=== PATIENT | female | born 1965 | race Caucasian/White ===

== ENCOUNTER 2017-01-25 16:59 | Emergency (ER) | payer OTHER ==
[2017-01-25 17:03] VITALS: PULSE 105; TEMP 98; BMI 25.0
--- NOTE | 2017-01-25 19:55 | PDOC ---
History of Present Illness - General History Source: Patient Exam Limitations: No Limitations - History of Present Illness Initial Comments: 01/25/17 20:27 The patient is a 51 year old female with no significant past medical history who presents to the ED with complaints of left buttock pain for several weeks. The patient reports she woke up with a sudden onset of left buttock pain labor day weekend. She states her left buttock pain radiates down her left leg and progressively worsens throughout the day. She states as the day progresses, she develops left lower extremity numbness and tingling ,and left toe numbness. Patient also reports she develops right sided leg numbness and burning like sensation throughout the day secondary to having to depend on her right leg for walking. Patient states her legs feel like jelly and she shakes when she walks. Patient reports she applies heating pads and electrode pads to her left buttocl with slight relief of present symptoms. Patient states she was working on her garage earlier today, hit her head and slit it open. She states she went to [facility], received mario to her head and was recommended to come into the ED for a CT of her left hip. Denies fecal incontinence. Denies fevers or chills. Denies chest pain or shortness of breath. Denies dysuria or change in urinary output. Denies abdominal pain, nausea, vomiting, or diarrhea. Denies any other symptoms. Denies allergies. Surgical hx: x2, ablation of uterus secondary to menorrhagia, hematometra removal, tummy tuck <Adam Constantino - Last Filed: 01/26/17 01:56> <Lidia Lynn - Last Filed: 01/26/17 16:30> - General Chief Complaint: Pain Stated Complaint: Urgent care referred for Leg pain Time Seen by Provider: 01/25/17 18:05 Past History <Adam Constantino - Last Filed: 01/26/17 01:56> - Past Medical History Anemia: Yes Asthma: No Cancer: No Cardiac Disorders: Yes (bradycardia) CVA: No COPD: No CHF: No Dementia: No Diabetes: No GI Disorders: Yes (ACID REFLUX) Disorders: No HTN: No Hypercholesterolemia: No Liver Disease: No Seizures: No Thyroid Disease: No - Surgical History Abdominal Surgery: Yes (TUMMY TUCK) Appendectomy: No Cardiac Surgery: No Cholecystectomy: No Lung Surgery: No Neurologic Surgery: No Orthopedic Surgery: Yes - Immunization History Immunization Up to Date: No - Suicide/Smoking/Psychosocial Hx Smoking Status: No Smoking History: Never smoked Number of Cigarettes Smoked Daily: 0 Information on smoking cessation initiated: No Hx Alcohol Use: No Drug/Substance Use Hx: No Substance Use Type: None Hx Substance Use Treatment: No <Lidia Lynnh - Last Filed: 01/26/17 16:30> - Past Medical History Allergies/Adverse Reactions: Allergies Allergy/AdvReac Type Severity Reaction Status Date / Time No Known Allergies Allergy Verified 01/25/17 17:03 Home Medications: Ambulatory Orders Topiramate [Topamax] 100 mg PO DAILY 10/14/12 Amitriptyline HCl [Elavil -] 25 mg PO DAILY 01/25/17 Review of Systems - Review of Systems Able to Perform ROS?: Yes Comments:: 01/25/17 20:27 CONSTITUTIONAL: No reported: Fever, Chills, Diaphoresis, Generalized Weakness, Malaise, Loss of Appetite HEENT: No reported: Rhinorrhea, Nasal Congestion, Throat Pain, Throat Swelling, Difficulty Swallowing, Mouth Swelling, Ear Pain, Eye Pain, Visual Changes CARDIOVASCULAR: No reported: Chest Pain, Syncope, Palpitations, Irregular Heart Rate, Lightheadedness, Peripheral Edema RESPIRATORY: No reported: Cough, Shortness of Breath, SOB with Exertion, Orthopnea, Wheezing , Stridor, Hemoptysis GASTROINTESTINAL: No reported: Abdominal pain, Abdominal Distension, Nausea, Vomiting, Diarrhea, Constipation, Melena, Hematochezia GENITOURINARY: No reported: Dysuria, Frequency, Urgency, Hesitancy, Flank Pain, Genital Pain MUSCULOSKELETAL: + left buttock pain, left leg pain with numbness and tingling, right leg pain with numbness. No reported: Joint swelling, Back pain, Neck Pain SKIN: No reported: Rash, Itching, Pallor HEMEATOLOGIC/IMMUNOLOGIC: No reported: Easy Bleeding, Easy Bruising, Lymphadenopathy, Frequent infections ENDOCRINE: No reported: Unexplained Weight Gain, Unexplained Weight Loss, Heat Intolerance , Cold Intolerance NEUROLOGIC: No reported: Headache, Focal Weakness, Paresthesias, Vertigo, Lightheadedness, Unsteady Gait, Seizure, Mental Status Changes, Incontinence PSYCHIATRIC: No reported: Anxiety, Depression All Other Systems: Reviewed and Negative <Adam Constantino - Last Filed: 01/26/17 01:56> *Physical Exam - Vital Signs Last Vital Signs Temp Pulse Resp BP Pulse Ox 98 F 105 H 18 133/91 99 01/25/17 17:02 01/25/17 17:02 01/25/17 17:02 01/25/17 17:02 01/25/17 17:02 - Physical Exam Comments: 01/25/17 20:27 GENERAL: Well developed, well nourished. Awake and alert. No acute distress. HEENT: Normocephalic, atraumatic. PERRLA, EOMI. No conjunctival pallor. Sclera are non- icteric. Moist mucous membranes. Oropharynx is clear. NECK: Supple. Full ROM. No JVD. Carotid pulses 2+ and symmetric, without bruits. No thyromegaly. No lymphadenopathy. CARDIOVASCULAR: Regular rate and rhythm. No murmurs, rubs, or gallops. Distal pulses are 2+ and symmetric. PULMONARY: No evidence of respiratory distress. Lungs clear to auscultation bilaterally. No wheezing, rales or rhonchi. ABDOMINAL: Soft. Non-tender. Non-distended. No rebound or guarding. No organomegaly. Normoactive bowel sounds. MUSCULOSKELETAL Normal range of motion at all joints. No bony deformities or tenderness. No CVA tenderness. EXTREMITIES: + No clonus. No deformity, peripheral neuropathy, pain on left lower extremity. Abnormal gait of the right leg. No cyanosis. No clubbing. No edema. No calf tenderness. SKIN: Warm and dry. Normal capillary refill. No rashes. No jaundice. NEUROLOGICAL: + walking with ataxic gait. Neurologically intact. Normal rectal tone. No saddle anesthesia. No flowonix Alert, awake, appropriate. Cranial nerves 2-12 intact. No deficits to light touch and temperature in face, upper extremities and lower extremities. No motor deficits in the in face, upper extremities. Normoreflexic in the upper extremities. Normal speech. Toes are down-going bilaterally. PSYCHIATRIC: Cooperative. Good eye contact. Appropriate mood and affect. <Adam Constantino - Last Filed: 01/26/17 01:56> - Vital Signs Last Vital Signs Temp Pulse Resp BP Pulse Ox 98 F 105 H 18 133/91 99 01/25/17 17:02 01/25/17 17:02 01/25/17 17:02 01/25/17 17:02 01/25/17 17:02 <Lidia Lynn - Last Filed: 01/26/17 16:30> ED Treatment Course - LABORATORY CBC & Chemistry Diagram: 01/25/17 19:45 01/25/17 19:45 - ADDITIONAL ORDERS Additional order review: Laboratory Results 01/25/17 19:45 Sodium 142 Potassium 3.4 L Chloride 109 H Carbon Dioxide 27 Anion Gap 6 L BUN 17 Creatinine 0.9 Creat Clearance w eGFR > 60 Random Glucose 79 D Calcium 9.3 Total Bilirubin 0.5 D AST 13 L D ALT 23 D Alkaline Phosphatase 103 Total Protein 7.6 Albumin 4.0 01/25/17 19:45 RBC 5.04 MCV 85.1 MCHC 33.5 RDW 13.8 MPV 9.1 Neutrophils % 43.2 D Lymphocytes % 47.9 H D Monocytes % 6.6 Eosinophils % 1.8 Basophils % 0.5 - RADIOLOGY Radiograph Interpretation: 01/25/17 23:57 EXAM: CT LUMBAR SPINE WITHOUT CONTRAST Impression: No acute fracture or malalignment. Small posterior disc bulges L4-L5 and L5-S1, but no substantial canal or neural foraminal stenosis. 1.2 cm bone island L4. Punctate stone right kidney. Reported by: Imaging supervisor fabrication department <Adam Constantino - Last Filed: 01/26/17 01:56> - LABORATORY CBC & Chemistry Diagram: 01/25/17 19:45 01/25/17 19:45 <Lidia Lynn - Last Filed: 01/26/17 16:30> Medical Decision Making - Medical Decision Making 01/26/17 00:[address] Dowd at 00:47. Patient will follow-up in office. <Adam Constantino - Last Filed: 01/26/17 01:56> - Medical Decision Making 01/26/17 01:59 51 yo female who states she has no medical problems She is here because she has had left leg pain since Day. She denies trauma but she was lifting items into her attic and the next day had pain radiating from her left buttocks down her left leg -since that time her symptoms have been intermittent but she has noticed that her right leg is "very shaky" and feels like jello. -she now has some ataxia on her rt leg when ambulating however on exam there is no decreased sensation in either leg and good motor strength, there is +3 DTR in her left leg and +1 DTR in her rt leg -on exam she has normal rectal tone -there is no saddle anesthesia,no clonus -on exam she has normal 5/5 motor strength in her extremities 01/26/17 02:07 case discussed w her neurologist wh she normally sees for her migraines (Dr Daniels called back) and an MRI should be done -the pt wants to f/u with her neurologist 01/26/17 02:20 ct scan head no acute intracranial pathology ct scan lumbar spine no lesions,no masses,no canal stenosis IMP left leg sciatica /right leg abnormal gait plan -see neuro this week 01/26/17 02:28 01/26/17 16:29 ADDENDUM-I called the pt today to see if she contacted her neurologist at [facility] and she does have an appt this WED at 10:[address] Mitchell <Lidia Lynn - Last Filed: 01/26/17 16:30> *DC/Admit/Observation/Transfer - Attestations Scribe Attestion: 01/25/17 20:27 Documentation prepared by Adam Constantino, acting as center medical and lab director for Lidia Lynn MD <Adam Constantino - Last Filed: 01/26/17 01:56> <Lidia Lynn - Last Filed: 01/26/17 16:30> Diagnosis at time of Disposition: Gait abnormality, Leg pain, left - Discharge Dispostion Disposition: HOME Condition at time of disposition: Stable - Patient Instructions Printed Discharge Instructions: DI for Back Pain With Sciatica Additional Instructions: You need to see your neurologist for further evaluation as soon as possible Return for any worsening symptoms
[2017-01-25 19:56] LABS: BASOPHIL 0.5 % (0-2.0); EOSINOPHIL 1.8 % (0-4.5); MCH 28.5 pg (25.7-33.7); MCHC 33.5 g/dl (32.0-36.0); MEAN CELL VOLUME 85.1 fl (80-96); MEAN PLT VOLUME 9.1 fl (7.5-11.1); NEUTROPHILS 43.2 % (42.8-82.8); PLATELET COUNT 169 K/MM3 (134-434); RDW 13.8 % (11.6-15.6); WHITE BLOOD COUNT 6.8 K/mm3 (4.0-10.0)
[2017-01-25 20:22] LABS: ANION GAP 6 (8-16); BILIRUBIN,TOTAL 0.5 mg/dL (0.2-1.0); CALCIUM 9.3 mg/dL (8.5-10.1); CO2 27 mmol/L (21-32); CREATININE 0.9 mg/dL (0.55-1.02); GLUCOSE,RANDOM 79 mg/dL (74-106); SGOT/AST 13 U/L (15-37); SGPT/ALT 23 U/L (12-78); TOT PROT 7.6 g/dl (6.4-8.2)
[2017-01-25 20:23] LABS: ALK PHOS 103 U/L (45-117)
[2017-01-25] MEDS ORDERED: IBUPROFEN 400 MG TABLET (FP) PO ONE ×2 (20:29→20:33)
[2017-01-25 23:34] VITALS: BP 110/59
[2017-01-25] MEDS ORDERED: POTASSIUM CHLORIDE TABS 20 MEQ TABLET.ER (FP) PO ONE (23:59)
[2017-01-26] MEDS ORDERED: POTASSIUM CHLORIDE TABS 20 MEQ TABLET.ER (FP) PO ONE (00:18)
== END 2017-01-26 02:42 | disposition home or self-care (01) ==
LOC: JER 16:59
DX: M54.42 Lumbago with sciatica, left side (principal); M79.604 Pain in right leg; N20.0 Calculus of kidney; K21.9 Gastro-esophageal reflux disease without esophagitis
CPT/HCPCS: 36415; 70450-TC; 72131-TC; 80053; 85025; 99283-25

== ENCOUNTER 2017-07-03 04:59 | Day surgery (SDC) | payer OTHER ==
[2017-06-30 11:50] VITALS: BMI 24.9
--- NOTE | 2017-07-03 11:58 | HP ---
History & Physical Update - History History: No Change - Physical Physical: No Change - Assessment Assessment: No Change - Plan Plan: No Change
--- NOTE | 2017-07-03 12:01 | OP ---
Operative Note - Note: Operative Date: 07/03/17 Pre-Operative Diagnosis: R ureteral calculus Operation: R ureteroscopy and JJ stent insertion Findings: 4 mm R UVJ calculus Post-Operative Diagnosis: Other (passed) Surgeon: Raymundo Waldrop Anesthesiologist/PYROTECHNIC MIXER: Mitesh Horner Anesthesia: General Estimated Blood Loss (mls): 0 Drains & Tubes with Location: 6 fr 24 cm R JJ Operative Report Dictated: Yes
[2017-07-03] MEDS ORDERED: PROPOFOL 20 ML ONE (12:12)
[2017-07-03] MEDS ORDERED: MIDAZOLAM HCL 2 MG/2 ML SINGLE DOSE VIAL ONE (12:12)
[2017-07-03] MEDS ORDERED: DEXAMETHASONE SOD PHOSPHATE 4 MG/1 ML VIAL ONE ×2 (12:12→12:39)
[2017-07-03] MEDS ORDERED: LIDOCAINE HCL 2% 100 MG/5 ML DISP.SYRIN ONE (12:12)
[2017-07-03] MEDS ORDERED: ceFAZolin SODIUM 1 GM VIAL IVPB ONE (12:30)
[2017-07-03] MEDS ORDERED: ONDANSETRON 4 MG/2 ML VIAL IVPUSH PRN (12:51)
[2017-07-03] MEDS ORDERED: LACTATED RINGERS SOLUTION 1,000 ML IV SCH (13:00)
[2017-07-03 14:29] VITALS: TEMP 97.8
[2017-07-03 15:20] VITALS: BP 112/67; PULSE 53
--- NOTE | 2017-07-04 07:43 | OP ---
DATE OF OPERATION: 07/03/2017 PREOPERATIVE DIAGNOSIS: Right ureteral calculus. POSTOPERATIVE DIAGNOSIS: Right ureteral calculus (passed). PROCEDURE: Cystoscopy, right ureteroscopy, and double-J stent insertion. SURGEON: Raymundo Waldrop MD SECURITY OPERATIONS CENTER ANALYST: None. ANESTHESIA: General via laryngeal mask. ANESTHESIOLOGIST: Mitesh Horner MD SPECIMENS: None. CULTURES: None. DRAINS: A 6-Jamaican 24-cm right double-J stent. ESTIMATED BLOOD LOSS: None. COMPLICATIONS: None. DESCRIPTION OF PROCEDURE: Patient was brought to the operating room, placed on the operating table in supine position. After the administration of intravenous antibiotics, sequential compression devices were placed, and general anesthesia was administered via laryngeal mask. Patient was placed in dorsal lithotomy position. The perineum and vagina were prepped and draped in usual sterile manner. A 22-Jamaican cystoscope was inserted into the bladder with the obturator in place. The obturator was removed, and urine was evacuated. A 30-degree telescope was inserted, and cystoscopy was performed. This demonstrated no foreign bodies, tumors, stones, or inflammation. Both ureteral orifices were in their usual location with clear efflux bilaterally. Right ureteral orifice was cannulated with a 0.038 guidewire which was advanced to the level of the right renal pelvis under fluoroscopic and direct visual guidance. Now, the bladder was emptied, cystoscope removed. The ureteroscope was now inserted alongside the guidewire all the way to the level of the proximal ureter. No stones were seen. The ureter was re-inspected upon withdrawal of the ureteroscope, and no stones were seen. [id number] contrast was injected, demonstrated no hydronephrosis, and the guidewire was coiled within the right renal pelvis. Now, a 6-Jamaican 24-cm double-J stent was inserted over the guidewire under fluoroscopic guidance, leaving 1 coil in the renal pelvis and 1 coil in the bladder. The instruments were removed. The bladder was emptied, and the stent was secured to the thigh with a Tegaderm on suture. She tolerated the procedure well, transferred to Recovery in stable condition. She will be followed in the office Thursday for stent removal. Jovi ANTHONY/[id number]
== END 2017-07-03 15:47 | disposition home or self-care (01) ==
LOC: JASU-SURG 04:59
PROVIDERS: ATTEND Urology
PROC: 0T768DZ Dilation of Right Ureter with Intraluminal Device, Via Natural or Artificial Opening Endoscopic (ICD-10-PCS; principal; 2017-07-03 12:30)
DX: N20.1 Calculus of ureter (principal)
CPT/HCPCS: 76000-TC-FY; 84703; 94760

== ENCOUNTER 2018-08-19 08:16 | Inpatient (IN) | payer OTHER ==
[2018-08-19 08:25] VITALS: BMI 26.9
--- NOTE | 2018-08-19 08:39 | PDOC ---
History of Present Illness - General Chief Complaint: CVA/TIA Stated Complaint: NUMBNESS ON LT.SIDE Time Seen by Provider: 08/19/18 08:38 History Source: Patient Exam Limitations: No Limitations - History of Present Illness Initial Comments: 08/19/18 08:54 53 year old woman with a history of migraines, [id number] disk herniation who presents with 2 days of L cheek numbness/tingling that onset yesterday and was intermittent throughout the day but has been constant since awaking today and was associated with "slower thinking." She also complains of some numbness in her tongue. She has tingling in her hands and feet at baseline from her Topomax medication. She deneis any changes in vision, hearing, neck pain, dzziness, difficulty walking, chest pain, shortness of breath, recent fever. She has no other complaints at bedside. No headache right now, complaitns of some nausea Her baseline migraines have visual scotoma aura, she feels she may have a headache soon at bedside. Recent increase in topomax from 50 to 100 1 month ago NIH Stroke Scale - Last Known Well Date/Time & Onset Date Last Known Well: 08/18/18 Time Last Known Well: 22:00 - Initial Evaluation Level of consciousness: Alert Ask patient the month and their age: Answers both correctly Ask patient to open & close eyes; make fist and let go: Obeys both correctly Best gaze (horizontal eye movement): Normal Visual field testing: No visual field loss Facial paresis (Show teeth/raise eyebrows/close eyes tight): Normal symmetrical movement Motor Function: Left Arm: Normal Motor Function: Right Arm: Normal (extends arm 90 (or 45) degrees for 10 seconds without drift Motor Function: Left Leg: Normal (extends leg 30 degrees for 5 seconds without drift) Motor Function: Right Leg: Normal (extends leg 30 degrees for 5 seconds without drift) Limb Ataxia: No ataxia Sensory(Use pinprick test arms,legs,trunk,face/side to side): Mild to moderate decrease in sensation Best language (Describe picture, name items, read sentences): No Aphasia Dysarthria (read several words): Normal articulation Extinction and Inattention: No abnormality - Total Score NIH Stroke Scale Score: 1 Past History - Past Medical History Allergies/Adverse Reactions: Allergies Allergy/AdvReac Type Severity Reaction Status Date / Time No Known Allergies Allergy Verified 08/19/18 12:26 Home Medications: Ambulatory Orders Topiramate [Topamax] 100 mg PO HS 08/19/18 Anemia: No Asthma: No Cancer: No Cardiac Disorders: No CVA: No COPD: No CHF: No Dementia: No Diabetes: No GI Disorders: Yes (hx ACID REFLUX) Disorders: No HTN: No Hypercholesterolemia: No Liver Disease: No Seizures: No Thyroid Disease: No - Surgical History Abdominal Surgery: Yes (TUMMY TUCK lipo) Appendectomy: No Cardiac Surgery: No Cholecystectomy: No Lung Surgery: No Neurologic Surgery: No Orthopedic Surgery: Yes (R knee arthroscopy) - Immunization History Immunization Up to Date: No - Suicide/Smoking/Psychosocial Hx Smoking Status: No Smoking History: Current every day smoker Number of Cigarettes Smoked Daily: 0 Information on smoking cessation initiated: No Hx Alcohol Use: No Drug/Substance Use Hx: Yes Substance Use Type: Marijuana Hx Substance Use Treatment: No Review of Systems - Review of Systems Able to Perform ROS?: Yes Comments:: 08/19/18 09:11 GENERAL/CONSTITUTIONAL: No fever or chills. No weakness. HEAD, EYES, EARS, NOSE AND THROAT: No change in vision. No ear pain or discharge. No sore throat. CARDIOVASCULAR: No chest pain or shortness of breath RESPIRATORY: No cough, wheezing, or hemoptysis. GASTROINTESTINAL: No vomiting, diarrhea or constipation. GENITOURINARY: No dysuria, frequency, or change in urination. MUSCULOSKELETAL: No joint or muscle swelling or pain. No neck or back pain. SKIN: No rash NEUROLOGIC: No headache, vertigo, loss of consciousness, or change in strength/ sensation. ENDOCRINE: No increased thirst. No abnormal weight change HEMATOLOGIC/LYMPHATIC: No anemia, easy bleeding, or history of blood clots. ALLERGIC/IMMUNOLOGIC: No hives or skin allergy. Is the patient limited Montenegrin proficient: No *Physical Exam - Vital Signs Last Vital Signs Temp Pulse Resp BP Pulse Ox 98.6 F 69 16 114/79 99 08/19/18 08:20 08/19/18 08:20 08/19/18 08:20 08/19/18 08:20 08/19/18 08:20 - Physical Exam Comments: 08/19/18 09:12 GENERAL: Awake, alert, and fully oriented, in no acute distress HEAD: No signs of trauma, normocephalic, atraumatic EYES: PERRLA, EOMI, sclera anicteric, conjunctiva clear ENT: oropharynx clear without exudates. Moist mucosa NECK: Normal ROM, supple LUNGS: No distress, speaks full sentences, clear to auscultation bilaterally HEART: Regular rate and rhythm, normal S1 and S2, no murmurs, rubs or gallops, peripheral pulses normal and equal bilaterally. ABDOMEN: Soft, nontender, normoactive bowel sounds. No guarding, no rebound. No masses EXTREMITIES : Normal inspection, Normal range of motion, no edema. No clubbing or cyanosis. NEUROLOGICAL: + L facial V2 numbness, no cerebellar dysfunction, able to wrinkle forehead bilaterally, no dysarthria or dysmetria, Normal speech, normal gait, no focal sensorimotor deficits SKIN: Warm, Dry, normal turgor, no rashes or lesions noted ED Treatment Course - LABORATORY CBC & Chemistry Diagram: 08/19/18 09:02 08/19/18 09:02 Medical Decision Making - Medical Decision Making 08/19/18 08:55 53 year old woman with a history of migraines, [id number] disk herniation who presents with 2 days of L cheek numbness/tingling that onset yesterday and was intermittent throughout the day but has been constant since awaking today and was associated with "slower thinking." She also complains of some numbness in her tongue. She has tingling in her hands and feet at baseline from her Topomax medication. ED Course: ddx inblt: complex migraine vs cva vs tia vs electrolyte derangement vs medication side effect cbc, cmp, mag, tsh, ekg, trop, head ct zofran NIHSS 1 EKG: normal sinus juan antonio rhythm HR 59, no interval abnormalities, narrow QRS, ST and T wave segments and morphology normal. 08/19/18 11:12 labs wnl, pending CT will contact neuro and admit for further evaluation and MRI 08/19/18 12:04 CT negative spoke with Neurology Dr. Rosa who recs MRI and agrees with admission Pending medicine call Discussed patient with medicine team resident. Will admit. *DC/Admit/Observation/Transfer Diagnosis at time of Disposition: Neurological deficit present - Discharge Dispostion Condition at time of disposition: Stable Decision to Admit order: Yes - Referrals Referrals: ON STAFF,NOT [Primary Care Provider] - - Patient Instructions - Post Discharge Activity
[2018-08-19] MEDS ORDERED: ONDANSETRON *ODT* 4 MG TABLET SL ONE (09:06)
--- NOTE | 2018-08-19 09:07 | PDOC ---
Documentation entered by Krya Gilman SCRIBE, acting as scribe for Matt Martini MD. Matt Martini MD: This documentation has been prepared by the Mukul urbano Amanda, SCRIBE, under my direction and personally reviewed by me in its entirety. I confirm that the documentation accurately reflects all work, treatment, procedures, and medical decision making performed by me. Attending Attestation - Resident Resident Name: Bertha Mcdaniel - ED Attending Attestation I have performed the following: I have examined & evaluated the patient, The case was reviewed & discussed with the resident, I agree w/resident's findings & plan, Exceptions are as noted - HPI HPI: 08/19/18 09:16 The patient is a 53 year old female with significant past medical history of migraines (taking Topamax) and disc herniation (L4,5 & S1), who presents to the ED with 2 days of left cheek numbness and tingling, increased generalized fatigue, and slow speech which initially started as intermittent, however, has remained constant today. She states her boss advised her to come to the ED. She denies any changes in vision, hearing, neck pain, dizziness, difficulty walking, chest pain, shortness of breath, recent fever. She has no other complaints at bedside. She denies a headache at this time. Allergies: NKDA PCP: Dr. Maciel ([facility]) Neuro: Dr. Patel ([facility]) - Physicial Exam PE: 08/19/18 09:20 GENERAL: Awake, alert, and fully oriented, in no acute distress HEAD: No signs of trauma EYES: PERRLA, EOMI, sclera anicteric, conjunctiva clear ENT: Auricles normal inspection, hearing grossly normal, nares patent, oropharynx clear without exudates. Moist mucosa NECK: Normal ROM, supple, no lymphadenopathy, JVD, or masses LUNGS: Breath sounds equal, clear to auscultation bilaterally. No wheezes, and no crackles HEART: Regular rate and rhythm, normal S1 and S2, no murmurs, rubs or gallops ABDOMEN: Soft, nontender, normoactive bowel sounds. No guarding, no rebound. No masses EXTREMITIES: Normal range of motion, no edema. No clubbing or cyanosis. No cords, erythema, or tenderness NEUROLOGICAL: (+) decreased sensation over left cheek. Able to wrinkle forehead. Cranial nerves II-XII intact. Normal speech, normal gait. Sensation intact in upper and lower extremities. 5/5 motor strength in upper and lower extremities. No pronator drift. Finger to nose intact. Rapid alternations intact. No dysmetria. SKIN: Warm, Dry, normal turgor, no rashes or lesions noted. - Medical Decision Making 08/19/18 09:07 A portion of this note was documented by scribe services under my direction. I have reviewed the details of the note, within reason, and agree with the documentation with the following case summary and management plan written by me. Patient treated in the ED. Nursing notes are reviewed and incorporated into the medical decision-making. Vital signs reviewed. Peripheral IV access obtained by the nurse, laboratory studies are drawn and sent, reviewed and interpreted by myself. Vital Signs Temp Pulse Resp BP Pulse Ox 98.6 F 69 16 114/79 99 08/19/18 08:20 08/19/18 08:20 08/19/18 08:20 08/19/18 08:20 08/19/18 08:20 53-year-old female with past medical history of migraines on baseline Topamax presents with left facial numbness for 2 days. Patient initially started to feel left facial, left cheek and left tongue numbness that was intermittent has now become more constant. Patient denies any symptoms of her migraines. But denies any other neurological deficits. Because of the persistent the symptoms, the patient came to the ER. The patient will need to rule out for stroke. Differential also includes complex migraine. Can wrinkle her forehead. Patient will need a head CT. If not hemorrhagic, dispense aspirin admit the patient to hospital. Neuro consult. 08/19/18 11:16 CBC, BMP 08/19/18 09:02 08/19/18 09:02 CMP Sodium 143 mmol/L (136-145) 08/19/18 09:02 Potassium 4.3 mmol/L (3.5-5.1) 08/19/18 09:02 Chloride 112 mmol/L (98-107) H 08/19/18 09:02 Carbon Dioxide 27 mmol/L (21-32) 08/19/18 09:02 Anion Gap 4 MMOL/L (8-16) L 08/19/18 09:02 BUN 19 mg/dL (7-18) H 08/19/18 09:02 Creatinine 0.9 mg/dL (0.55-1.3) 08/19/18 09:02 Creat Clearance w eGFR 65.75 (>60) 08/19/18 09:02 Random Glucose 88 mg/dL (74-106) 08/19/18 09:02 Calcium 9.2 mg/dL (8.5-10.1) 08/19/18 09:02 Magnesium 2.3 mg/dL (1.8-2.4) 08/19/18 09:02 Total Bilirubin 0.7 mg/dL (0.2-1) 08/19/18 09:02 AST 13 U/L (15-37) L 08/19/18 09:02 ALT 22 U/L (13-61) 08/19/18 09:02 Alkaline Phosphatase 120 U/L (45-117) H 08/19/18 09:02 Creatine Kinase 174 U/L (26-192) 08/19/18 09:02 Creatine Kinase Index 1.3 % (0.0-5.0) 08/19/18 09:02 CK-MB (CK-2) 2.4 ng/mL (0.5-3.6) 08/19/18 09:02 Troponin I < 0.02 ng/ml (0.00-0.05) 08/19/18 09:02 Total Protein 7.6 g/dl (6.4-8.2) 08/19/18 09:02 Albumin 3.8 g/dl (3.4-5.0) 08/19/18 09:02 TSH 0.55 uIU/ml (0.358-3.74) 08/19/18 09:[address] negative. Will consult neuro and admit. Give aspirin 08/20/18 07:58 Heart Score/ECG Review #1 ECG reviewed & interpreted by me at: 09:40 08/19/18 10:18 NSR 59, no std/petey, normal axis, normal intervals, QTC 409 msec NIH Stroke Scale - Last Known Well Date/Time & Onset Date Last Known Well: 08/17/18 - Initial Evaluation Level of consciousness: Alert Ask patient the month and their age: Answers both correctly Ask patient to open & close eyes; make fist and let go: Obeys both correctly Best gaze (horizontal eye movement): Normal Visual field testing: No visual field loss Facial paresis (Show teeth/raise eyebrows/close eyes tight): Normal symmetrical movement Motor Function: Left Arm: Normal Motor Function: Right Arm: Normal (extends arm 90 (or 45) degrees for 10 seconds without drift Motor Function: Left Leg: Normal (extends leg 30 degrees for 5 seconds without drift) Motor Function: Right Leg: Normal (extends leg 30 degrees for 5 seconds without drift) Limb Ataxia: No ataxia Sensory(Use pinprick test arms,legs,trunk,face/side to side): Mild to moderate decrease in sensation Best language (Describe picture, name items, read sentences): No Aphasia Dysarthria (read several words): Normal articulation Extinction and Inattention: No abnormality - Total Score NIH Stroke Scale Score: 1
[2018-08-19] MEDS ORDERED: ONDANSETRON *ODT* 4 MG TABLET ONE (09:08)
[2018-08-19 09:10] LABS: BASO % 0.9 % (0-2.0); EOS % 1.5 % (0-4.5); HEMATOCRIT 44.7 % (32.4-45.2); HEMOGLOBIN 14.7 GM/dL (10.7-15.3); LYMPH % 39.7 % (8-40); MCHC 32.9 g/dl (32.0-36.0); MEAN PLT VOLUME 8.4 fl (7.5-11.1); MONO % 6.5 % (3.8-10.2); NEUT % 51.4 % (42.8-82.8); PLATELET COUNT 193 K/MM3 (134-434); RBC 5.26 M/mm3 (3.60-5.2); RDW 14.2 % (11.6-15.6); WHITE BLOOD COUNT 4.9 K/mm3 (4.0-10.0)
[2018-08-19 09:33] LABS: EPI CELLS 0.9 /HPF (0-5/HPF); PH,URINE 7.5 (5.0-8.0); URINE APPEARANCE TURBID; URINE BACTERIA 19.3 /hpf (NEGATIVE); URINE BILIRUBIN NEGATIVE (NEGATIVE); URINE CASTS 4 /lpf (0-8); URINE COLOR YELLOW; URINE GLUCOSE (UA) NEGATIVE (NEGATIVE); URINE KETONE NEGATIVE (NEGATIVE); URINE LEUK ESTERASE NEGATIVE (NEGATIVE); URINE NITRITE NEGATIVE (NEGATIVE); URINE PROTEIN NEGATIVE (NEGATIVE); URINE RBC 10 /hpf (0-4); URINE UROBILINOGEN 0.2 mg/dL (0.2-1.0); URINE WBC 2 /hpf (0-5)
[2018-08-19] MEDS: SODIUM CHLORIDE 1,000 ML IV SCH (09:40)
[2018-08-19 09:43] LABS: ALBUMIN 3.8 g/dl (3.4-5.0); ALK PHOS 120 U/L (45-117); ANION GAP 4 MMOL/L (8-16); BILIRUBIN,TOTAL 0.7 mg/dL (0.2-1); BLOOD UREA NITROGEN 19 mg/dL (7-18); CALCIUM 9.2 mg/dL (8.5-10.1); CHLORIDE 112 mmol/L (98-107); CO2 27 mmol/L (21-32); CREATININE 0.9 mg/dL (0.55-1.3); GLUCOSE,RANDOM 88 mg/dL (74-106); MAGNESIUM 2.3 mg/dL (1.8-2.4); POTASSIUM 4.3 mmol/L (3.5-5.1); SGOT/AST 13 U/L (15-37); SGPT/ALT 22 U/L (13-61); SODIUM 143 mmol/L (136-145); TOT PROT 7.6 g/dl (6.4-8.2)
--- NOTE | 2018-08-19 12:12 | EKG ---
Test Reason : Blood Pressure : / mmHG Vent. Rate : 059 BPM Atrial Rate : 059 BPM P-R Int : 154 ms QRS Dur : 086 ms QT Int : 414 ms P-R-T Axes : 071 053 039 degrees QTc Int : 409 ms SINUS BRADYCARDIA WITH SINUS ARRHYTHMIA OTHERWISE NORMAL ECG WHEN COMPARED WITH ECG OF 30-JUN-2017 11:11, NO SIGNIFICANT CHANGE WAS FOUND Confirmed by RAO CARTER MD ([id number]) on 08/19/2018 12:11:38 PM Referred By: Confirmed By:RAO CARTER MD
--- NOTE | 2018-08-19 12:32 | HP ---
CHIEF COMPLAINT: "my face is numb" PCP: HISTORY OF PRESENT ILLNESS: This is a 53 yo F with PMH of migraines and L4L5S1 disk herniation, who presents L cheek numbness/tingling x3 d. Symptoms progressed gradually, have been intermittent initially but became constant this morning, associated with tongue heaviness, trouble swallowing, raspy voice and decline in cognitive ability. She also reports increased fatigue and exertional palpitations. This has never happened before. These symptoms are not similar to her migraines. She has tingling in her hands and feet at baseline from her Topomax medication. Recent increase in topomax from 50 to 100 1 month ago. reports changes in nail texture and hair loss. denies heat/cold intolerane, cp, light headedness, cough, sob, abd pain, n/v/d/c, dysuria. ER course was notable for: (1)ct head (2)ekg (3)labs Recent Travel: denies PAST MEDICAL HISTORY: as above PAST SURGICAL HISTORY: as above Social History: Smoking: denies Alcohol: denies Drugs: denies Family History: arrythmia Allergies No Known Allergies Allergy (Verified 08/19/18 12:26) HOME MEDICATIONS: Home Medications Medication Instructions Recorded Topiramate [Topamax] 100 mg PO HS 08/19/18 REVIEW OF SYSTEMS CONSTITUTIONAL: Absent: fever, chills HEENT: Absent: rhinorrhea, nasal congestion, throat pain CARDIOVASCULAR: Absent: chest pain, syncope, palpitations RESPIRATORY: Absent: cough, shortness of breath, dyspnea with exertion, orthopnea, wheezing, stridor, hemoptysis GASTROINTESTINAL: Absent: abdominal pain, abdominal distension, nausea, vomiting, diarrhea, constipation, melena, hematochezia GENITOURINARY: Absent: dysuria, flank pain MUSCULOSKELETAL: Absent: back pain, neck pain SKIN: Absent: rash, itching, pallor HEMATOLOGIC/IMMUNOLOGIC: Absent: easy bleeding, easy bruising, lymphadenopathy, frequent infections ENDOCRINE: Absent: unexplained weight gain, unexplained weight loss, heat intolerance, cold intolerance NEUROLOGIC: Absent: dizziness, unsteady gait, seizure, bladder or bowel incontinence PSYCHIATRIC: Absent: anxiety, depression PHYSICAL EXAMINATION Vital Signs - 24 hr 08/19/18 08:20 Temperature 98.6 F Pulse Rate 69 Respiratory 16 Rate Blood Pressure 114/79 O2 Sat by Pulse 99 Oximetry (%) GENERAL: Awake, alert, and fully oriented, in no acute distress. HEAD: Normal with no signs of trauma. EYES: perrla eomi EARS, NOSE, THROAT: Moist mucous membranes. NECK: Normal range of motion, supple without lymphadenopathy, JVD, or masses. LUNGS: Breath sounds equal, clear to auscultation bilaterally. No wheezes, and no crackles. No accessory muscle use. HEART: Regular rate and rhythm, normal S1 and S2 ABDOMEN: Soft, nontender, not distended, normoactive bowel sounds, no guarding, no rebound, no masses. MUSCULOSKELETAL: No CVA tenderness. UPPER EXTREMITIES: 2+ pulses, warm, well-perfused. No cyanosis. No clubbing. No peripheral edema. LOWER EXTREMITIES: 2+ pulses, warm, well-perfused. No calf tenderness. No peripheral edema. NEUROLOGICAL: Cranial nerves II-XII intact. raspy speech. muscle strength 5/5 in all extremity, extremity sensation intact. b/l 1+ reflexes. + decrease in sensationin L v2 facial distribution but does feel temperature, pin prick and fine touch. PSYCHIATRIC: Cooperative. Good eye contact. Appropriate mood and affect. SKIN: Warm, dry Laboratory Results - last 24 hr 08/19/18 08/19/18 08/19/18 09:02 09:02 09:05 WBC 4.9 RBC 5.26 H Hgb 14.7 Hct 44.7 MCV 85.0 MCH 28.0 MCHC 32.9 RDW 14.2 Plt Count 193 MPV 8.4 Absolute Neuts (auto) 2.5 Neutrophils % 51.4 Lymphocytes % 39.7 Monocytes % 6.5 Eosinophils % 1.5 Basophils % 0.9 Nucleated RBC % 0 Sodium 143 Potassium 4.3 Chloride 112 H Carbon Dioxide 27 Anion Gap 4 L BUN 19 H Creatinine 0.9 Creat Clearance w eGFR 65.75 Random Glucose 88 Calcium 9.2 Magnesium 2.3 Total Bilirubin 0.7 AST 13 L ALT 22 Alkaline Phosphatase 120 H Creatine Kinase 174 Creatine Kinase Index 1.3 CK-MB (CK-2) 2.4 Troponin I < 0.02 Total Protein 7.6 Albumin 3.8 TSH 0.55 Urine Color Urine Appearance Urine pH Ur Specific Lane Urine Protein Urine Glucose (UA) Urine Ketones Urine Blood Urine Nitrite Urine Bilirubin Urine Urobilinogen Ur Leukocyte Esterase Urine WBC (Auto) Urine RBC (Auto) Urine Casts (Auto) U Epithel Cells (Auto) Urine Bacteria (Auto) Urine HCG, Qual Negative 08/19/18 09:10 WBC RBC Hgb Hct MCV MCH MCHC RDW Plt Count MPV Absolute Neuts (auto) Neutrophils % Lymphocytes % Monocytes % Eosinophils % Basophils % Nucleated RBC % Sodium Potassium Chloride Carbon Dioxide Anion Gap BUN Creatinine Creat Clearance w eGFR Random Glucose Calcium Magnesium Total Bilirubin AST ALT Alkaline Phosphatase Creatine Kinase Creatine Kinase Index CK-MB (CK-2) Troponin I Total Protein Albumin TSH Urine Color Yellow Urine Appearance Turbid Urine pH 7.[address] 1.016 Urine Protein Negative Urine Glucose (UA) Negative Urine Ketones Negative Urine Blood Trace Urine Nitrite Negative Urine Bilirubin Negative Urine Urobilinogen 0.2 Ur Leukocyte Esterase Negative Urine WBC (Auto) 2 Urine RBC (Auto) 10 Urine Casts (Auto) 4 U Epithel Cells (Auto) 0.9 Urine Bacteria (Auto) 19.3 Urine HCG, Qual ASSESSMENT/PLAN: This is a 53 yo F with PMH of migraines and L4L5S1 disk herniation, who presents L cheek numbness/tingling x3 d. r/o CVA Migraine -ct head unremarkable -r/u MRI brain w/o cont -tte, carotid dopplers -asa, crestor -f/u lpid panel, a1c, tfts -npo until speech/swallow eval -tele monitoring; may need outpatient event monitor -neuro consult -continue topomax Problem List - Problem (1) CVA (cerebral vascular accident) Code(s): I63.9 - CEREBRAL INFARCTION, UNSPECIFIED (2) Migraines Code(s): G43.909 - MIGRAINE, UNSP, NOT INTRACTABLE, WITHOUT STATUS MIGRAINOSUS (3) Neurological deficit present Code(s): R29.818 - OTHER SYMPTOMS AND SIGNS INVOLVING THE NERVOUS SYSTEM Visit type - Emergency Visit Emergency Visit: Yes ED Registration Date: 08/19/18 Care time: The patient presented to the Emergency Department on the above date and was hospitalized for further evaluation of their emergent condition. - New Patient This patient is new to me today: Yes Date on this admission: 08/19/18 - Critical Care Critical Care patient: No
[2018-08-19] MEDS ORDERED: ASPIRIN 81 MG CHEWABLE TABLETS PO ONE (13:00)
[2018-08-19 13:13] LABS: HEMATOCRIT 41.8 % (32.4-45.2); HEMOGLOBIN 13.9 GM/dL (10.7-15.3); MCH 27.9 pg (25.7-33.7); MCHC 33.3 g/dl (32.0-36.0); MEAN CELL VOLUME 83.7 fl (80-96); MEAN PLT VOLUME 8.6 fl (7.5-11.1); PLATELET COUNT 188 K/MM3 (134-434); RBC 4.99 M/mm3 (3.60-5.2); RDW 13.9 % (11.6-15.6); WHITE BLOOD COUNT 5.8 K/mm3 (4.0-10.0)
[2018-08-19] MEDS ORDERED: ASPIRIN 81 MG CHEWABLE TABLETS ONE (13:43)
[2018-08-19] MEDS ORDERED: ROSUVASTATIN CA 20 MG TABLET (FP) PO ONE (14:23)
--- NOTE | 2018-08-19 15:57 | ECHO ---
Name: MIYA SMITH Exam:Adult Echocardiogram Study Date: 08/19/2018 01:43 PM Age: 53 yrs Reason For Study: R/O CVA TIA/STROKE Height: 64 in Weight: 157 lb BSA: 1.8 m2 MMode/2D Measurements & Calculations IVSd: 0.92 cm Ao root diam: 2.6 cm LVIDd: 4.1 cm LA dimension: 3.0 cm LVIDs: 3.0 cm LVPWd: 0.84 cm EDV(Teich): 73.8 ml LVOT diam: 2.0 cm ESV(Teich): 34.1 ml Doppler Measurements & Calculations MV E max benjamin: 51.8 cm/sec Ao V2 max: 121.9 cm/sec MV A max benjamin: 59.2 cm/sec Ao max P.9 mmHg MV E/A: 0.88 Ao V2 mean: 78.5 cm/sec MV dec time: 0.20 sec Ao mean P.9 mmHg Ao V2 VTI: 26.0 cm SELENE(I,D): 2.1 cm2 SELENE(V,D): 2.1 cm2 LV V1 max P.7 mmHg SV(LVOT): 54.4 ml LV V1 mean P.4 mmHg LV V1 max: 81.9 cm/sec LV V1 mean: 55.7 cm/sec LV V1 VTI: 17.3 cm TR max benjamin: 224.0 cm/sec Med Peak E' Benjamin: 7.9 cm/sec TR max P.1 mmHg Med E/e': 6.6 Lat Peak E' Benjamin: 11.5 cm/sec Lat E/e': 4.5 Procedure A complete two-dimensional transthoracic echocardiogram was performed (2D, M-mode, Doppler and color flow Doppler). Left Ventricle The left ventricular size, thickness and function are normal. The left ventricular ejection fraction is normal. Ejection Fraction = 55-60%. The left ventricular wall motion is normal. Right Ventricle The right ventricle is normal in size and function. Atria Normal left and right atrial size and function. Mitral Valve There is no mitral regurgitation noted. Tricuspid Valve There is trace tricuspid regurgitation. There was insufficient TR detected to calculate RV systolic p ressure. Aortic Valve No hemodynamically significant valvular aortic stenosis. No aortic regurgitation is present. Pulmonic Valve There is no pulmonic valvular regurgitation. Great Vessels The aortic root is normal size. Pericardium/Pleura There is no pericardial effusion. Interpretation Summary The left ventricular size, thickness and function are normal The right ventricle is normal in size and function. There is trace tricuspid regurgitation. MD Jj De Dios 08/19/2018 03:56 PM
[2018-08-19 16:51] LABS: HEMATOCRIT 42.7 % (32.4-45.2); HEMOGLOBIN 14.1 GM/dL (10.7-15.3); MCH 28.2 pg (25.7-33.7); MCHC 32.9 g/dl (32.0-36.0); MEAN CELL VOLUME 85.7 fl (80-96); MEAN PLT VOLUME 9.5 fl (7.5-11.1); PLATELET COUNT 171 K/MM3 (134-434); RBC 4.98 M/mm3 (3.60-5.2); RDW 14.4 % (11.6-15.6); WHITE BLOOD COUNT 6.8 K/mm3 (4.0-10.0)
[2018-08-19] MEDS ORDERED: ROSUVASTATIN CA 10 MG TABLET (FP) ONE (17:11)
--- NOTE | 2018-08-19 17:43 | PN ---
Teaching Attending Note Name of Resident: Isabel Mccormack ATTENDING PHYSICIAN STATEMENT I saw and evaluated the patient. I reviewed the resident's note and discussed the case with the resident. I agree with the resident's findings and plan as documented. SUBJECTIVE: This is a 53 year old woman with a history of migraine MONTIEL, lumbosacral disc disease who comes to the ED today complaining of numbness of her left cheek. She says it started with tingling 3 days ago and today she had numbness prompting her to come to the ED. She has been feeling fatigued during this time. OBJECTIVE: Vital Signs Period Temp Pulse Resp BP Sys/Muñoz Pulse Ox Last 24 Hr 97.7 F-98.6 F 62-69 14-18 114-123/71-79 98-100 HEART: S1S2, RRR LUNGS: Clear ABDOMEN: Soft, non-tender, non-distended, normal BS EXTREMITIES: No edema NEUROLOGICAL: Alert, oriented, CN intact, speech clear, sensation intact, strength 5/5 in all extremities, swallow intact Laboratory Tests 08/19/18 08/19/18 08/19/18 09:02 09:02 09:05 WBC 4.9 RBC 5.26 H Hgb 14.7 Hct 44.7 MCV 85.0 MCH 28.0 MCHC 32.9 RDW 14.2 Plt Count 193 MPV 8.4 Absolute Neuts (auto) 2.5 Neutrophils % 51.4 Lymphocytes % 39.7 Monocytes % 6.5 Eosinophils % 1.5 Basophils % 0.9 Nucleated RBC % 0 Sodium 143 Potassium 4.3 Chloride 112 H Carbon Dioxide 27 Anion Gap 4 L BUN 19 H Creatinine 0.9 Creat Clearance w eGFR 65.75 Random Glucose 88 Hemoglobin A1c % Calcium 9.2 Magnesium 2.3 Total Bilirubin 0.7 AST 13 L ALT 22 Alkaline Phosphatase 120 H Creatine Kinase 174 Creatine Kinase Index 1.3 CK-MB (CK-2) 2.4 Troponin I < 0.02 Total Protein 7.6 Albumin 3.8 TSH 0.55 Urine Color Urine Appearance Urine pH Ur Specific [place] Urine Protein Urine Glucose (UA) Urine Ketones Urine Blood Urine Nitrite Urine Bilirubin Urine Urobilinogen Ur Leukocyte Esterase Urine WBC (Auto) Urine RBC (Auto) Urine Casts (Auto) U Epithel Cells (Auto) Urine Bacteria (Auto) Urine HCG, Qual Negative 08/19/18 08/19/1808/19/19 09:10 13:05 16:24 WBC 5.8 6.8 RBC 4.99 4.98 Hgb 13.9 14.1 Hct 41.8 42.7 MCV 83.7 85.7 MCH 27.9 28.2 MCHC 33.3 32.9 RDW 13.9 14.4 Plt Count 188 171 MPV 8.6 9.5 D Absolute Neuts (auto) Neutrophils % Lymphocytes % Monocytes % Eosinophils % Basophils % Nucleated RBC % Sodium Potassium Chloride Carbon Dioxide Anion Gap BUN Creatinine Creat Clearance w eGFR Random Glucose Hemoglobin A1c % Calcium Magnesium Total Bilirubin AST ALT Alkaline Phosphatase Creatine Kinase Creatine Kinase Index CK-MB (CK-2) Troponin I Total Protein Albumin TSH Urine Color Yellow Urine Appearance Turbid Urine pH 7.5 Ur Specific [place] 1.016 Urine Protein Negative Urine Glucose (UA) Negative Urine Ketones Negative Urine Blood Trace Urine Nitrite Negative Urine Bilirubin Negative Urine Urobilinogen 0.2 Ur Leukocyte Esterase Negative Urine WBC (Auto) 2 Urine RBC (Auto) 10 Urine Casts (Auto) 4 U Epithel Cells (Auto) 0.9 Urine Bacteria (Auto) 19.3 Urine HCG, Qual 08/19/18 16:24 WBC RBC Hgb Hct MCV MCH MCHC RDW Plt Count MPV Absolute Neuts (auto) Neutrophils % Lymphocytes % Monocytes % Eosinophils % Basophils % Nucleated RBC % Sodium Potassium Chloride Carbon Dioxide Anion Gap BUN Creatinine Creat Clearance w eGFR Random Glucose Hemoglobin A1c % 5.9 Calcium Magnesium Total Bilirubin AST ALT Alkaline Phosphatase Creatine Kinase Creatine Kinase Index CK-MB (CK-2) Troponin I Total Protein Albumin TSH Urine Color Urine Appearance Urine pH Ur Specific [place] Urine Protein Urine Glucose (UA) Urine Ketones Urine Blood Urine Nitrite Urine Bilirubin Urine Urobilinogen Ur Leukocyte Esterase Urine WBC (Auto) Urine RBC (Auto) Urine Casts (Auto) U Epithel Cells (Auto) Urine Bacteria (Auto) Urine HCG, Qual Home Medications Medication Instructions Recorded Topiramate [Topamax] 100 mg PO HS 08/19/18 ASSESSMENT AND PLAN: This is a 53 year old woman with a history of migraine MONTIEL, lumbosacral disc disease who presented to the ED with numbness and tingling of her left face. 1. Facial paresthesias - Doubt TIA/CVA - Head CT, MRI of brain, carotid dopplers, echo unremarkable - ? migraine - Awaiting Neuro consult
[2018-08-19] MEDS ORDERED: PT OWN MED DRAWER 7, Y5N ONE (20:20)
[2018-08-19] MEDS ORDERED: TOPIRAMATE 100 MG TABLET PO SCH (22:00)
[2018-08-20] MEDS: SODIUM CHLORIDE 1,000 ML IV SCH ×2 (06:28→14:58)
[2018-08-20 08:30] LABS: ANION GAP 6 MMOL/L (8-16); BLOOD UREA NITROGEN 21 mg/dL (7-18); CALCIUM 9.3 mg/dL (8.5-10.1); CHLORIDE 112 mmol/L (98-107); CHOLESTEROL 189 mg/dL (50-200); CO2 24 mmol/L (21-32); CREATININE 0.8 mg/dL (0.55-1.3); GLUCOSE,RANDOM 88 mg/dL (74-106); HDL CHOLESTEROL 72 mg/dL (40-60); POTASSIUM 4.3 mmol/L (3.5-5.1); SODIUM 142 mmol/L (136-145); TRIGLYCERIDES 86 mg/dL (0-150)
--- NOTE | 2018-08-20 09:27 | CONSULT ---
Consult - text type - Consultation Consultation Note: Neurology CHIEF COMPLAINT: "my face is numb" HISTORY OF PRESENT ILLNESS: 53 yo F with PMH of migraines and L4L5S1 disk herniation, who presents L cheek numbness/tingling x3 d. Symptoms progressed gradually, have been intermittent initially but became constant morning of admission, associated with tongue heaviness, trouble swallowing, raspy voice and decline in cognitive ability. She also reported increased fatigue and exertional palpitations. This has never happened before. These symptoms are not similar to her migraines. She had tingling in her hands and feet at baseline from her Topomax medication. Recent increase in topomax from 50 to 100 1 month ago by her outpatient neurologist. Denied heat/cold intolerane, cp, light headedness, cough, sob, abd pain, n/v/d/c, dysuria. This AM, feels much better with IV fluids and rest. CT head completed, reviewed and discussed and without acute changes. MRI brain also completed and discussed, did not demonstrate and any infarcts, masses, or evidence of demylination. Carotid dopplers completed and discussed and without hemodynamically significant stenosis. Echo reviewed and discussed and normal LV function and EF. Patient reassurred by this. She inquired about Lyme testing which i recommended by done through her PCP or neurologist and this would allow for follow up of results. If lyme drawn in hospital would not see results for several days. Neurologically improved and discussed with her that discharge would be appropriate and she was in agreement. Defer to Primary team but from neuro point of view, no further eval needed. Further Topamax adjustment per outpatient neurologist though suggested reducing to 50mg at bedtime from 100mg ( caused increased migraines for her in past) or consider alternative migraine medication which I will defer to her neurologist. Recent Travel: denies PAST MEDICAL HISTORY: as above PAST SURGICAL HISTORY: as above Social History: Smoking: denies Alcohol: denies Drugs: denies Family History: arrythmia Allergies No Known Allergies Allergy (Verified 08/19/18 12:26) HOME MEDICATIONS: Home Medications Medication Instructions Recorded Topiramate [Topamax] 100 mg PO HS 08/19/18 REVIEW OF SYSTEMS CONSTITUTIONAL: Absent: fever, chills HEENT: Absent: rhinorrhea, nasal congestion, throat pain CARDIOVASCULAR: Absent: chest pain, syncope, palpitations RESPIRATORY: Absent: cough, shortness of breath, dyspnea with exertion, orthopnea, wheezing, stridor, hemoptysis GASTROINTESTINAL: Absent: abdominal pain, abdominal distension, nausea, vomiting, diarrhea, constipation, melena, hematochezia GENITOURINARY: Absent: dysuria, flank pain MUSCULOSKELETAL: Absent: back pain, neck pain SKIN: Absent: rash, itching, pallor HEMATOLOGIC/IMMUNOLOGIC: Absent: easy bleeding, easy bruising, lymphadenopathy, frequent infections ENDOCRINE: Absent: unexplained weight gain, unexplained weight loss, heat intolerance, cold intolerance NEUROLOGIC: Absent: dizziness, unsteady gait, seizure, bladder or bowel incontinence PSYCHIATRIC: Absent: anxiety, depression PHYSICAL EXAMINATION Vital Signs Period Temp Pulse Resp BP Sys/Muñoz Pulse Ox Last 24 Hr 97.7 F-98.3 F 46-69 14-20 99-123/58-72 98-100 GENERAL: Awake, alert, and fully oriented, in no acute distress. HEAD: Normal with no signs of trauma. EYES: perrla eomi EARS, NOSE, THROAT: Moist mucous membranes. NECK: Normal range of motion, supple without lymphadenopathy, JVD, or masses. LUNGS: Breath sounds equal, clear to auscultation bilaterally. No wheezes, and no crackles. No accessory muscle use. HEART: Regular rate and rhythm, normal S1 and S2 ABDOMEN: Soft, nontender, not distended, normoactive bowel sounds, no guarding, no rebound, no masses. MUSCULOSKELETAL: No CVA tenderness. UPPER EXTREMITIES: 2+ pulses, warm, well-perfused. No cyanosis. No clubbing. No peripheral edema. LOWER EXTREMITIES: 2+ pulses, warm, well-perfused. No calf tenderness. No peripheral edema. NEUROLOGICAL: Cranial nerves II-XII intact. raspy speech. muscle strength 5/5 in all extremity, extremity sensation intact. b/l 1+ reflexes. + decrease in sensationin L v2 facial distribution but does feel temperature, pin prick and fine touch. PSYCHIATRIC: Cooperative. Good eye contact. Appropriate mood and affect. SKIN: Warm, dry Laboratory Results - last 24 hr 08/19/18 08/19/18 08/19/18 09:02 09:02 09:05 WBC 4.9 RBC 5.26 H Hgb 14.7 Hct 44.7 MCV 85.0 MCH 28.0 MCHC 32.9 RDW 14.2 Plt Count 193 MPV 8.4 Absolute Neuts (auto) 2.5 Neutrophils % 51.4 Lymphocytes % 39.7 Monocytes % 6.5 Eosinophils % 1.5 Basophils % 0.9 Nucleated RBC % 0 Sodium 143 Potassium 4.3 Chloride 112 H Carbon Dioxide 27 Anion Gap 4 L BUN 19 H Creatinine 0.9 Creat Clearance w eGFR 65.75 Random Glucose 88 Calcium 9.2 Magnesium 2.3 Total Bilirubin 0.7 AST 13 L ALT 22 Alkaline Phosphatase 120 H Creatine Kinase 174 Creatine Kinase Index 1.3 CK-MB (CK-2) 2.4 Troponin I < 0.02 Total Protein 7.6 Albumin 3.8 TSH 0.55 Urine Color Urine Appearance Urine pH Ur Specific [place] Urine Protein Urine Glucose (UA) Urine Ketones Urine Blood Urine Nitrite Urine Bilirubin Urine Urobilinogen Ur Leukocyte Esterase Urine WBC (Auto) Urine RBC (Auto) Urine Casts (Auto) U Epithel Cells (Auto) Urine Bacteria (Auto) Urine HCG, Qual Negative 08/19/18 09:10 WBC RBC Hgb Hct MCV MCH MCHC RDW Plt Count MPV Absolute Neuts (auto) Neutrophils % Lymphocytes % Monocytes % Eosinophils % Basophils % Nucleated RBC % Sodium Potassium Chloride Carbon Dioxide Anion Gap BUN Creatinine Creat Clearance w eGFR Random Glucose Calcium Magnesium Total Bilirubin AST ALT Alkaline Phosphatase Creatine Kinase Creatine Kinase Index CK-MB (CK-2) Troponin I Total Protein Albumin TSH Urine Color Yellow Urine Appearance Turbid Urine pH 7.5 Ur Specific [place] 1.016 Urine Protein Negative Urine Glucose (UA) Negative Urine Ketones Negative Urine Blood Trace Urine Nitrite Negative Urine Bilirubin Negative Urine Urobilinogen 0.2 Ur Leukocyte Esterase Negative Urine WBC (Auto) 2 Urine RBC (Auto) 10 Urine Casts (Auto) 4 U Epithel Cells (Auto) 0.9 Urine Bacteria (Auto) 19.3 Urine HCG, Qual ASSESSMENT/PLAN: 53 yo F with PMH of migraines and L4L5S1 disk herniation, who presents L cheek numbness/tingling x3 d. Symptoms progressed gradually, have been intermittent initially but became constant morning of admission, associated with tongue heaviness, trouble swallowing, raspy voice and decline in cognitive ability. She also reported increased fatigue and exertional palpitations. This has never happened before. These symptoms are not similar to her migraines. She had tingling in her hands and feet at baseline from her Topomax medication. Recent increase in topomax from 50 to 100 1 month ago by her outpatient neurologist. Denied heat/cold intolerane, cp, light headedness, cough, sob, abd pain, n/v/d/c, dysuria. This AM, feels much better with IV fluids and rest. CT head completed, reviewed and discussed and without acute changes. MRI brain also completed and discussed, did not demonstrate and any infarcts, masses, or evidence of demylination. Carotid dopplers completed and discussed and without hemodynamically significant stenosis. Echo reviewed and discussed and normal LV function and EF. Patient reassurred by this. She inquired about Lyme testing which i recommended by done through her PCP or neurologist and this would allow for follow up of results. If lyme drawn in hospital would not see results for several days. Neurologically improved and discussed with her that discharge would be appropriate and she was in agreement. Defer to Primary team but from neuro point of view, no further eval needed. Further Topamax adjustment per outpatient neurologist though suggested reducing to 50mg at bedtime from 100mg ( caused increased migraines for her in past) or consider alternative migraine medication which I will defer to her neurologist.
--- NOTE | 2018-08-20 10:46 | CONSULT ---
Admitting History and Physical - Past Medical History ...LMP: 07/07/11 ...: No - Smoking History Smoking history: Former smoker Have you smoked in the past 12 months: No Aproximately how many cigarettes per day: 0 - Alcohol/Substance Use Hx Alcohol Use: No History - Admission Reason For Visit: NEUROLOGICAL DEFICIT PRESENT - Hearing Hearing: Normal Speech Evaluation - Communication Primary Language: KYRGYZ Secondary Language: [place] Communication: Yes: Within Normal Limits Oral Expression Ability: Yes: No Impairment - Speech Production Apraxia: No Able to Make Needs Known: Yes: WNL Intelligibility: Yes: WNL - Speech Characteristics Voice Loudness: Normal Voice Pitch: Yes: Normal Voice Phonatory-based Quality: Yes: Hoarse (raspy) Speech Pattern: Normal Nasal Resonance: Normal Articulation: Yes: Precise Dysfluency: Yes: Tonic Rate of Speech: Intact Voice Comment: raspy characteristics but WNL for speech - Language/Auditory Comprehension Follows: Yes: 1 Stage Simple Commands (WFL), 2 Stage Simple Commands (WFL), Complex Commands (WFL) Observation: Able to respond to yes/no queries: Yes, Yes/No Confusion: No, Comprehends Conversational Speech: Yes, Benefits from Slow Speech: No, Benefits from Repetiton: No, Benefits from Increased Volume of Speech: No - Language/Verbal Expression Able to Respond to Simple Queries: Yes: WNL Able to Communicate Wants and Needs: Yes: WNL Functional Communication Status: Yes: WNL Aware of Errors: Yes Attempts to Correct Errors: Yes Use of Gestures: Yes Written Expression: WFL Oral Expression: WFL Reading Comprehension: WFL ( evident reading lunch menu) Calculations: WFL Attention: Yes: Intact - Memory/Perception snf Memory: Yes: WNL Short Term Memory: Yes: WNL - Swallow Evaluation/Bedside Assessment Current Nutritional Intake: Regular, Thin Liquids Oral Secretions: Yes: WFL Tracheostomy Present: No Patient on Ventilator: No Dentition: Yes: Adequate Facial Symmetry at Rest: Symmetrical Facial Symmetry on Retraction: Symmetrical Facial Movement: Controlled Sensation: Normal Facial Comment: WFL for speech and swallowing purposes. Jaw Position: Closed at Rest Against Resistance Opening: Normal Against Resistance Closing: Normal Pucker Lips: Normal Smile: Normal Lips, Comment: WFL for speech and swallowing purposes. Lingual Movement: Normal Lingual Speed of Movement: Normal Lingual Movement Strgth Against Opposition: Normal Lingual Movement Characteristics: Normal Lingual Comment: WFL for speech and swallowing purposes. Soft Palate Description: Normal Color, Normal Arch Hard Palate Description: Normal Color, Normal Arch Gag Reflex: Strong Bite Reflex: Present Velopharyngeal Movement: Normal Laryngeal Elevation: WFL Needs Assistance: No Rate of Intake: WFL Bolus Size: WFL Labial Seal: WFL Chewing: WFL Oral Prep Time: WFL A-P Transit: WFL Timing of Swallow: WFL Coughing/Throat Clear: No Change in Voice: No Other Findings/Remarks: 53 yo female seen at bedside for swallow eval to r/o dysphagia. Pt is verbal, A &Ox3 cooperative. Admitted to [facility] secondary to left facial numbness, slurred speech and inability to swallow (appears to be resolved). Oral motor exam is unremarkable (left facial numbness reduced). Vocal quality is characterized as raspy or mild hoarsen. Airway protection is WFL. Current diet: regular solids with thin liquids. Pt given po trials of pureed and regular solids without assistance revealed good acceptance, adequate mastication and bolus formation. Transport is WFL with timely pharyngeal swallows. No cough or changes in respiration / voicing after the swallow. Thin liquid trials via cup and straw without assistance were unremarkable for dysphagia and / or aspiration at bedside at this time. Recommendations - Speech Evaluation, Impression/Plan Impression: 53 yo female presents with no s/s of aspiration for pureed, regular solids with thin liquids at this time. Left sided numbness appears to have resolved. Speech in Engllsh and Albanian is WNL at this time. No further speech intervention needed at this time. Cfd Engineer Goals: Tolerate the least restrictive diet without s/s of aspiration Short Term Goals: tolerate regular solids with thin liquids without s/s aspiration as tolerated. - Dysphagia Impressions/Plan Swallowing Skills: WFL Dysphagia Impressions: No Impairment Dysphagia Treatment Plan: Small Bites, OOB for meals Dysphagia Evaluation Summary: Continue current diet of regular solids with thin liquids as tolerated. No Speech intervention needed at this time. Results given to conveyor line battery charger Pat and to PCP via chart. GREETING CARD MAKER to follow up if there is a change in medical status. - Recommendations Diet Consistency: Regular Medication Administration: Whole with water Liquids: Thin Liquids
[2018-08-20 17:08] VITALS: BP 115/66; PULSE 49; TEMP 98.4
--- NOTE | 2018-08-20 17:51 | DS ---
Physical Exam: SUBJECTIVE: Patient seen and examined at bedside this morning. No acute events overnight. Patient reported improvement of symptoms this morning but still reports intermittent left facial numbness or tingling. OBJECTIVE: Vital Signs Temperature 98.4 F 08/20/18 17:06 Pulse Rate 49 L 08/20/18 17:06 Respiratory Rate 20 08/20/18 17:06 Blood Pressure 115/66 08/20/18 17:06 O2 Sat by Pulse Oximetry (%) 100 08/19/18 17:39 PHYSICAL EXAM GENERAL: The patient is awake, alert, and fully oriented, in no acute distress. HEAD: Normal with no signs of trauma. EYES: PERRLA, EOMI, sclera anicteric, conjunctiva clear. ENT: oropharynx clear without exudates, moist mucous membranes. NECK: Trachea midline, full range of motion, supple. LUNGS: Breath sounds equal, clear to auscultation bilaterally. HEART: Regular rate and rhythm, S1, S2 without murmur, rub or gallop. ABDOMEN: Soft, nontender, nondistended, normoactive bowel sounds. EXTREMITIES: 2+ pulses, warm, well-perfused, no edema. NEUROLOGICAL: Cranial nerves II through XII grossly intact. Normal speech, normal gait. Motor strength 5/5, sensation intact. PSYCH: Normal mood, normal affect. SKIN: Warm, dry, normal turgor, no rashes or lesions noted. LABS Laboratory Results - last 24 hr 08/20/18 07:00 Sodium 142 Potassium 4.3 Chloride 112 H Carbon Dioxide 24 Anion Gap 6 L BUN 21 H Creatinine 0.8 Creat Clearance w eGFR 75.32 Random Glucose 88 Calcium 9.3 Triglycerides 86 Cholesterol 189 Total LDL Cholesterol 108 H HDL Cholesterol 72 H Echo - LV size, thickness and function normal. RV size and function normal. Trace TR. Carotid Doppler - Mild intimal thickening at the common carotid bifurcation, bilaterally without evidence of hemodynamically significant stenosis. Head CT -No acute intracranial pathology Brain MRI - Mild volume loss mainly in the high convexity which is nonspecific. No acute intracranial pathology identified. HOSPITAL COURSE: Date of Admission:08/19/18 Date of Discharge: 08/20/18 Patient is a 53 year old female with past medical history of migraines and L4- S1 disc herniation, presented with intermittent left cheek numbness and tingling that started [address], Brain MRI, Carotid dopplers and Echo were done. Neurology was consulted. Patient remained stable throughout hospital stay and noted improvement of symptoms. Lyme disease titers were done. Patient was discharged with instructions to follow up with PCP and Neurology, and to follow-up Lyme disease titers in 3 days. Minutes to complete discharge: 38 Discharge Summary Reason For Visit: NEUROLOGICAL DEFICIT PRESENT Current Active Problems Facial paresthesia (Acute) Migraines (Acute) Neurological deficit present (Acute) Condition: Improved - Instructions Diet, Activity, Other Instructions: Your visit You were admitted to the hospital because you felt numb on the left side of your face. You were evaluated by the neurologist. Imaging were done and were negative of any concerns. You had a blood work done to check for Lyme disease. Please follow up with [facility] laboratory in 3-5 days for the results. Medications -Continue your home medications. Follow up -Please follow up with your primary care physician (Dr. Maciel) within 1 week. -Please follow up with your neurologist (Dr. Patel) within 1 week. Additional info Call 911 or go the ED if with any worsening fever, chills, headache, dizziness, weakness, numbness, tingling, chest pain, shortness of breath, abdominal pain, bloody stools or any new concerns noted. Referrals: Lyric Patel [Non Staff, Medical] - 1 Week Disposition: HOME - Home Medications Comprehensive Discharge Medication List: Ambulatory Orders Topiramate [Topamax -] 100 mg PO HS 08/19/18 This patient is new to me today: Yes Date on this admission: 08/20/18 Emergency Visit: Yes ED Registration Date: 08/19/18 Care time: The patient presented to the Emergency Department on the above date and was hospitalized for further evaluation of their emergent condition. Critical Care patient: No - Discharge Referral Referred to [facility] Med P.C.: No
--- NOTE | 2018-08-20 18:31 | PN ---
Teaching Attending Note Name of Resident: Chel Brady ATTENDING PHYSICIAN STATEMENT I saw and evaluated the patient. I reviewed the resident's note and discussed the case with the resident. I agree with the resident's findings and plan as documented. SUBJECTIVE: Patient reports occasional tingling of her left cheek. OBJECTIVE: Vital Signs Period Temp Pulse Resp BP Sys/Muñoz Pulse Ox Last 24 Hr 97.8 F-98.4 F 46-70 20-20 99-135/58-69 HEART: S1S2, RRR LUNGS: Clear ABDOMEN: Soft, non-tender, non-distended, normal BS EXTREMITIES: No edema NEUROLOGICAL: Non-focal Laboratory Results - last 24 hr 08/20/18 07:00 Sodium 142 Potassium 4.3 Chloride 112 H Carbon Dioxide 24 Anion Gap 6 L BUN 21 H Creatinine 0.8 Creat Clearance w eGFR 75.32 Random Glucose 88 Calcium 9.3 Triglycerides 86 Cholesterol 189 Total LDL Cholesterol 108 H HDL Cholesterol 72 H Current Medications Generic Name Dose Route Start Last Admin Trade Name Freq PRN Reason Stop Dose Admin Sodium Chloride 1,000 mls @ 42 mls/hr 08/19/18 09:15 08/20/18 14:58 Normal Saline - IV Not Given ASDIR GREG Topiramate 100 mg 08/19/18 22:00 08/19/18 21:44 Topamax - PO 100 mg HS GREG Administration ASSESSMENT AND PLAN: This is a 53 year old woman with a history of migraine MONTIEL, lumbosacral disc disease who presented to the ED with numbness and tingling of her left face. 1. Facial paresthesias - No evidence of TIA/CVA - Head CT, MRI of brain, carotid dopplers, echo unremarkable - ? migraine, ? Topamax - Discontinue aspirin, Crestor - Ok for discharge home today with outpatient neurology follow-up
== END 2018-08-20 20:50 | disposition home or self-care (01) | DRG 93 ==
LOC: JER 08:16 → JERBED 11:24 → J8W 14:47
PROVIDERS: ADMIT Internal Medicine; ATTEND Internal Medicine
DX: R20.2 Paresthesia of skin (principal); M51.27 Other intervertebral disc displacement, lumbosacral region; Z87.891 Personal history of nicotine dependence; R29.818 Other symptoms and signs involving the nervous system
CPT/HCPCS: 36415; 70450-TC; 70551-TC; 80048; 80053; 80061; 81003; 82550; 82553; 83036; 83721; 83735; 84443; 84484; 84703; 85025; 85027; 86618; 87086; 93005; 93010; 93306-TC; 93880-TC; 99285-25; J7030; Q0162

== ENCOUNTER 2020-07-13 07:18 | Day surgery (SDC) | payer OTHER ==
[2020-07-09 17:32] VITALS: BMI 29.2
[2020-07-13] MEDS ORDERED: SCOPOLAMINE HYDROBROMIDE 1 PATCH PATCH.TD72 ONE (09:26)
[2020-07-13] MEDS ORDERED: MIDAZOLAM HCL 2 MG/2 ML SINGLE DOSE VIAL ONE (09:35)
[2020-07-13] MEDS ORDERED: PROPOFOL 20 ML ONE ×5 (09:35→10:15)
[2020-07-13] MEDS ORDERED: BUPIVACAINE HCL/PF 2.5 MG/ML - 30 ML VIAL IJ ONE (09:40)
[2020-07-13] MEDS ORDERED: DEXAMETHASONE SOD PHOSPHATE 4 MG/1 ML VIAL ONE (10:03)
[2020-07-13] MEDS ORDERED: ONDANSETRON 4 MG/2 ML VIAL ONE (10:03)
[2020-07-13] MEDS ORDERED: ceFAZolin SODIUM 1 GM VIAL ONE (10:09)
[2020-07-13] MEDS ORDERED: BUPIVACAINE HCL/PF 0.25% (2.5MG/ML) 10 ML VIAL IJ ONE (10:20)
[2020-07-13] MEDS ORDERED: KETOROLAC TROMETHAMINE 30 MG/1 ML VIAL ONE (10:25)
[2020-07-13] MEDS ORDERED: ONDANSETRON 4 MG/2 ML VIAL IVPUSH PRN (10:42)
[2020-07-13] MEDS ORDERED: oxyCODONE HCL 5 MG TABLET PO PRN (10:42)
[2020-07-13] MEDS ORDERED: LACTATED RINGERS SOLUTION 1,000 ML IV SCH (10:45)
[2020-07-13] MEDS ORDERED: ACETAMINOPHEN INJECTION 100 ML IVPB ONE (11:30)
[2020-07-13] MEDS ORDERED: ACETAMINOPHEN 1000 MG/100 ML VIAL (NON FORMULARY) IVPB ONE ×2 (11:30→12:15)
[2020-07-13] MEDS ORDERED: diazePAM 5 MG TABLET PO ONE ×2 (11:47→12:15)
[2020-07-13 12:35] VITALS: TEMP 97.9
[2020-07-13 13:54] VITALS: BP 117/71; PULSE 70
== END 2020-07-13 14:07 | disposition home or self-care (01) ==
LOC: FASU 07:18
PROVIDERS: ATTEND Orthopaedic Surgery
PROC: 0SBC4ZZ Excision of Right Knee Joint, Percutaneous Endoscopic Approach (ICD-10-PCS; 2020-07-13)
PROC: 0SBC4ZZ Excision of Right Knee Joint, Percutaneous Endoscopic Approach (ICD-10-PCS; 2020-07-13)
PROC: 0SBC4ZZ Excision of Right Knee Joint, Percutaneous Endoscopic Approach (ICD-10-PCS; principal; 2020-07-13 10:10)
DX: S83.241A Other tear of medial meniscus, current injury, right knee, initial encounter (principal); S83.281A Other tear of lateral meniscus, current injury, right knee, initial encounter; M65.861 Other synovitis and tenosynovitis, right lower leg; S83.8X1A Sprain of other specified parts of right knee, initial encounter; X58.XXXA Exposure to other specified factors, initial encounter; Y92.9 Unspecified place or not applicable; Y93.9 Activity, unspecified
CPT/HCPCS: 88304-TC; 94760; J0131